=== PATIENT | female | born 1945 | race Caucasian/White ===

== ENCOUNTER 2019-04-20 00:28 | Outpatient (CLI) | payer OTHER, SELFPAY ==
--- NOTE | 2019-04-20 15:14 | DI.MAMMO_ITS ---
SYMPTOMS/DIAGNOSIS: SCREENING, Z12.31 BILATERAL SCREENING MAMMOGRAM: Mammograms were interpreted according to the usual protocol including computer analysis with CAD system, tomosynthesis and C view imaging. Comparison is made with exams from 2011 through 2016. The breasts are composed of scattered fibroglandular densities, breast density category B. No suspicious masses or suspicious microcalcifications are seen. There are scattered benign calcifications bilaterally. IMPRESSION: Category 2, negative mammogram with benign findings. Yearly screening mammography is recommended. [facility] ASSESSMENT OF FINDINGS: Negative with benign findings. Category 2. Patient will receive a letter notifying them of these results. BI-RADS category B. There are scattered areas of fibroglandular density.
== END 2019-04-20 00:48 ==
PROVIDERS: Visit Provider Internal Medicine
DX: Z12.31 Encounter for screening mammogram for malignant neoplasm of breast (principal)
CPT/HCPCS: 77063; 77067

== ENCOUNTER 2020-05-08 09:32 | Observation (INO) | payer OTHER, SELFPAY ==
[2020-05-08] VITALS (62 sets, daily range): BP systolic 134–190; BP diastolic 76–102; PULSE 82–129; RESP 9–25; TEMP 36–36.5; O2SAT 88–97
--- NOTE | 2020-05-08 | DI.MRI_ITS ---
CLINICAL HISTORY: suspected CVA. TECHNIQUE: Multiplanar multisequence MRA of the brain was performed. COMPARISON: CT angiography 05/08/2020. FINDINGS: Carotid Arteries: No aneurysm, occlusion or significant stenosis. Anterior Cerebral Arteries: Right: No aneurysm, occlusion or significant stenosis. Left: No aneurysm, occlusion or significant stenosis. Middle Cerebral Arteries: Right: No aneurysm, occlusion or significant stenosis. Left: No aneurysm, occlusion or significant stenosis. Posterior Cerebral Arteries: Right: No aneurysm, occlusion or significant stenosis. Left: No aneurysm, occlusion or significant stenosis. Vertebral Arteries: Right: No aneurysm, occlusion or significant stenosis. Left: No aneurysm, occlusion or significant stenosis. Basilar Artery: No aneurysm, occlusion or significant stenosis. IMPRESSION: Normal MRA examination of the [place]. DATA REPOSITORY:
--- NOTE | 2020-05-08 | DI.MRI_ITS ---
EXAM: MR BRAIN WO CLINICAL HISTORY: suspected CVA TECHNIQUE: Multiplanar multisequence MRI of the brain was performed. COMPARISON: CT CT BRAIN NECK CTA from 05/08/2020 FINDINGS: VENTRICLES AND EXTRA AXIAL SPACES: Normal in size and morphology for the patient's age. MIDLINE SHIFT: None. CEREBRAL PARENCHYMA: There is an area of restricted diffusion in the right thalamus consistent with a n acute infarct. No space-occupying lesion identified. Multiple foci of hyperintense signal on the T 2 and FLAIR images in the white matter consistent with small vessel ischemic disease. HEMORRHAGE: None. BRAINSTEM/CEREBELLUM: Normal. CALVARIUM: Normal. VISUALIZED PARANASAL SINUSES/MASTOIDS:Clear. OTHER FINDINGS: None. IMPRESSION: Findings consistent with an acute infarct in the right thalamus. DATA REPOSITORY:
--- NOTE | 2020-05-08 09:15 | DI.CT_ITS ---
EXAM: CT HEAD - STROKE PROTOCOL CLINICAL HISTORY: L sided numbness/weakness, r/o acute cva. TECHNIQUE: Imaging Protocol: Axial computed tomography images with coronal and sagittal reformatted images were created and reviewed COMPARISON: No exams were available for comparison FINDINGS: Ventricles and Extra axial spaces: Normal in size and morphology for the patient's age. Hemorrhage: None. Cerebral parenchyma: Findings of small vessel ischemic disease is present. Bilateral old lacunar inf arcts are present. No acute territorial infarct is present. Midline shift: None. Brainstem/Cerebellum: Normal. Calvarium: Normal. Visualized Paranasal sinuses/Mastoids: Clear. Soft Tissues: Unremarkable. IMPRESSION: No acute intracranial process. The findings were discussed with the emergency department on the date of the examination. RADIATION DOSE DELIVERED: 795.93mGy.cm Total DLP DATA REPOSITORY: All CT scans at this facility are submitted to the National Radiology Data Registry (NRDR) Dose Index Registry (DIR) with the [employer] (ACR). RADIATION OPTIMIZATION: All CT scans at this facility use at least one of these dose optimization te chniques: automated exposure control; mA and/or kV adjustment per patient size (includes targeted exa ms where dose is matched to clinical indication); or iterative reconstruction.
--- NOTE | 2020-05-08 09:29 | DI.RAD_ITS ---
EXAM: XR PORTABLE CHEST AP CLINICAL HISTORY: possible cva, r/o acute disease TECHNIQUE: 2D digital imaging was performed. COMPARISON: No exams were available for comparison FINDINGS: MEDIASTINUM: Normal. HEART: Normal. PULMONARY VASCULATURE: Normal. LUNGS: Clear. PLEURAL SPACE: No pleural effusion or pneumothorax. BONE:Normal. OTHER FINDINGS:Normal. IMPRESSION: No acute pulmonary findings. DATA REPOSITORY: RADIATION DOSE DELIVERED:
--- NOTE | 2020-05-08 09:30 | DI.CT_ITS ---
EXAM: CT BRAIN AND NECK CTA CLINICAL HISTORY: LT-SIDED NUMBNESS/WEAKNESS, R/O ACUTE CVA. TECHNIQUE: Imaging Protocol: Axial CT angiography was performed with multislice acquisition and mul tiplanar and/or 3D reconstructions. CONTRAST MATERIAL: Intravenous: Omnipaque 350 Contrast volume:structured data in ml COMPARISON: No exams were available for comparison FINDINGS: CTA Brain W: Internal Carotid Arteries: Petrous: Normal. Cavernous: Normal. Mild atherosclerosis. Cerebral: Normal. Middle Cerebral Arteries: Right: No aneurysm, occlusion or significant stenosis. Left: No aneurysm, occlusion or significant stenosis. Anterior Cerebral Arteries: Right: No aneurysm, occlusion or significant stenosis. Left: No aneurysm, occlusion or significant stenosis. Posterior cerebral Arteries: Right: No aneurysm, occlusion or significant stenosis. Left: No aneurysm, occlusion or significant stenosis. Vertebral Arteries: Right: No aneurysm, occlusion or significant stenosis. Left: No aneurysm, occlusion or significant stenosis. Basilar Artery: No aneurysm, occlusion or significant stenosis. CTA Neck W: Common Carotid: Right: No aneurysm, occlusion or significant stenosis. It has a retropharyngeal location. Left: No aneurysm, occlusion or significant stenosis. It has a retropharyngeal location. External Carotid: Right: No aneurysm, occlusion or significant stenosis. Left: No aneurysm, occlusion or significant stenosis. Internal Carotid: Right: No aneurysm, occlusion or significant stenosis. Left: No aneurysm, occlusion or significant stenosis. Vertebral Artery: Right: No aneurysm, occlusion or significant stenosis. Left: No aneurysm, occlusion or significant stenosis. Lung Apices: Normal. Bones: Mild degenerative changes of the cervical spine at C5-6 and C6-7. Soft Tissues: Normal. IMPRESSION: 1. No significant stenosis or occlusion of the cervical or intracranial arteries. 2. Findings were discussed with the Emergency Department on the date of the examination. RADIATION DOSE DELIVERED: 369.92mGy.cm Total DLP 369.92mGy.cm Total DLP 369.92mGy.cm Total DLP DATA REPOSITORY: All CT scans at this facility are submitted to the National Radiology Data Registry (NRDR) Dose Index Registry (DIR) with the [employer] (ACR). RADIATION OPTIMIZATION: All CT scans at this facility use at least one of these dose optimization te chniques: automated exposure control; mA and/or kV adjustment per patient size (includes targeted exa ms where dose is matched to clinical indication); or iterative reconstruction.
--- NOTE | 2020-05-08 09:31 | W.ED.GENAD ---
Discharge Plan Disposition Patient Disposition: [facility] INPATIENT Condition: Stable Discharge Details Chief Complaint: AMS/LOC Clinical Impression: TIA (transient ischemic attack) Admit Date/Time: 05/08/20 15:02 Admit Provider: Janey Borges Attending Provider: Janey Borges Primary Care Provider: Roney Ware ED Provider: Sarah Colón Discharge Data Discharge Date/Time-TO BE ENTERED AT DEPARTURE: 05/08/20 16:23 Medical Decision Making 1000 -- 74-year-old female with history of hypertension, hyperlipidemia, diabetes, multiple sclerosis who presents with left-sided tingling extending from the top of her head down to her left foot with left arm and left weakness that she noted upon waking at 8:30 AM this morning. Patient seen immediately upon arrival to ED in the hallway with difficulty with lifting both upper extremities with equal strength and with 4/5 strength left lower extremity compared to 5/5 strength right lower extremity. No facial droop. Oriented x3. Stat CT head and CTA head and neck negative. EKG notes a rate of 93, sinus, no acute ST elevation or depression. SC 132. QTc 445. QRS 80. 1030 --patient reassessed -symptoms are resolving. Case discussed with hospitalist who stated there was no neurology available here for the next week. Patient initially was hesitant to admission as she has cats at home and lives alone and does not have help. As [facility], they were also contacted but felt that patient was not appropriate for admission there as no neurology available. Patient is agreeable to admission here or the [facility]. Case discussed with [facility] neurology Dr. Mcmahon who reviewed imaging and states that case could be consistent with small vessel ischemic CVA and recommends admission for observation and MRI brain. Recommends dual antiplatelet therapy with 325 mg aspirin p.o. daily and a load of 600 mg Plavix today followed by 75 mg once daily. There are no [facility] beds available and neurology states that patient could be observed here overnight with plan for MRI brain. Case again discussed with hospitalist who accepts patient for admission. Patient has remained hemodynamically stable. Her blood pressure has been mildly hypertensive, 170s/70s. She still admits to intermittent tingling in her left side but states her left leg weakness remains improved. Medical Records Medical records reviewed: Yes I reviewed the patient's medical records. Imaging Data Radiologic Study: Radiologist's impression: CT HEAD - STROKE PROTOCOL CLINICAL HISTORY: L sided numbness/weakness, r/o acute cva. TECHNIQUE: Imaging Protocol: Axial computed tomography images with coronal and sagittal reformatted images were created and reviewed COMPARISON: No exams were available for comparison FINDINGS: Ventricles and Extra axial spaces: Normal in size and morphology for the patient's age. Hemorrhage: None. Cerebral parenchyma: Findings of small vessel ischemic disease is present. Bilateral old lacunar infarcts are present. No acute territorial infarct is present. Midline shift: None. Brainstem/Cerebellum: Normal. Calvarium: Normal. Visualized Paranasal sinuses/Mastoids: Clear. Soft Tissues: Unremarkable. IMPRESSION: No acute intracranial process. XR PORTABLE CHEST AP CLINICAL HISTORY: possible cva, r/o acute disease TECHNIQUE: 2D digital imaging was performed. COMPARISON: No exams were available for comparison FINDINGS: MEDIASTINUM: Normal. HEART: Normal. PULMONARY VASCULATURE: Normal. LUNGS: Clear. PLEURAL SPACE: No pleural effusion or pneumothorax. BONE:Normal. OTHER FINDINGS:Normal. IMPRESSION: No acute pulmonary findings. CT BRAIN AND NECK CTA CLINICAL HISTORY: LT-SIDED NUMBNESS/WEAKNESS, R/O ACUTE CVA. TECHNIQUE: Imaging Protocol: Axial CT angiography was performed with multislice acquisition and multiplanar and/or 3D reconstructions. CONTRAST MATERIAL: Intravenous: Omnipaque 350 Contrast volume:structured data in ml COMPARISON: No exams were available for comparison FINDINGS: CTA Brain W: Internal Carotid Arteries: Petrous: Normal. Cavernous: Normal. Mild atherosclerosis. Cerebral: Normal. Middle Cerebral Arteries: Right: No aneurysm, occlusion or significant stenosis. Left: No aneurysm, occlusion or significant stenosis. Anterior Cerebral Arteries: Right: No aneurysm, occlusion or significant stenosis. Left: No aneurysm, occlusion or significant stenosis. Posterior cerebral Arteries: Right: No aneurysm, occlusion or significant stenosis. Left: No aneurysm, occlusion or significant stenosis. Vertebral Arteries: Right: No aneurysm, occlusion or significant stenosis. Left: No aneurysm, occlusion or significant stenosis. Basilar Artery: No aneurysm, occlusion or significant stenosis. CTA Neck W: Common Carotid: Right: No aneurysm, occlusion or significant stenosis. It has a retropharyngeal location. Left: No aneurysm, occlusion or significant stenosis. It has a retropharyngeal location. External Carotid: Right: No aneurysm, occlusion or significant stenosis. Left: No aneurysm, occlusion or significant stenosis. Internal Carotid: Right: No aneurysm, occlusion or significant stenosis. Left: No aneurysm, occlusion or significant stenosis. Vertebral Artery: Right: No aneurysm, occlusion or significant stenosis. Left: No aneurysm, occlusion or significant stenosis. Lung Apices: Normal. Bones: Mild degenerative changes of the cervical spine at C5-6 and C6-7. Soft Tissues: Normal. IMPRESSION: 1. No significant stenosis or occlusion of the cervical or intracranial arteries. 2. Findings were discussed with the Emergency Department on the date of the examination. Lab Data Lab results reviewed: Yes I reviewed the patient's lab results. Labs: Laboratory Tests Range/Units 05/08/20 05/08/20 05/08/20 09:25 09:25 09:25 WBC (4.4-10.8) k/cumm 9.38 RBC (4.00-5.20) m/cumm 4.16 Hgb (12.0-15.5) g/dL 12.0 Hct (36.0-46.0) % 38.1 MCV (80-95) fL 91.6 MCH (27.0-33.0) pg 28.8 MCHC (32.0-36.0) g/dL 31.5 L RDW (11.7-14.6) % 14.5 Plt Count (130-400) x1000/uL 365 MPV (8.0-11.0) fL 10.6 Immature Gran % % 0.1 Neutrophils % 37.1 Lymphocytes % 54.2 Monocytes % 6.3 Eosinophils % 1.9 Basophils % 0.4 Absolute Neutrophils (1.2-6.7) k/cumm 3.48 Absolute Lymphocytes (1.2-3.4) k/cumm 5.08 H Absolute Monocytes (0.11-0.7) k/cumm 0.59 Absolute Eosinophils (0.0-0.7) k/cumm 0.18 Absolute Basophils (0.0-0.2) k/cumm 0.04 Differential Comment Agrees w/ instrument RBC Morphology Normal PT (9.3-11.0) sec 9.5 INR (0.9-1.1) 0.9 APTT (21.0-31.4) sec 23.7 Sodium (136-145) mmol/L 138 Potassium (3.5-5.1) mmol/L 4.5 Chloride (98-107) mmol/L 100 Carbon Dioxide (21.0-32.0) mmol/L 27.7 Anion Gap (3-11) mmol/L 10.3 BUN (7-18) mg/dL 16 Creatinine (0.55-1.02) mg/dL 1.39 H Estimated GFR/1.73 m2 (mL/min/1.73m2) 37.27 Glucose (74-106) mg/dL 102 Calcium (8.5-10.1) mg/dL 9.0 Magnesium (1.8-2.4) mg/dL 1.4 L Total Bilirubin (0.2-1.0) mg/dL 0.2 AST (15-37) U/L 22 ALT (14-59) U/L 27 Alkaline Phosphatase (46-116) U/L 106 Troponin I (<0.06) ng/mL < 0.05 Total Protein (6.4-8.2) g/dL 8.2 Albumin (3.4-5.0) g/dL 3.6 ECG Data Attestation: I personally reviewed and interpreted this ECG (s) as follows: Interpretation: Rate of 93, sinus, no acute ST elevation or depression. SC 132. QTc 445. QRS 80. HPI General Mode of arrival: EMS. Date/Time Provider Initiated Documentation: 05/08/20 09:36. Limitations to Documentation: no limitations. Information obtained by: patient. HPI Narrative: Patient is a 74-year-old female with a history of diabetes, hypertension, hyperlipidemia, multiple sclerosis who presents for left-sided numbness and weakness that she noted upon awakening this morning at 8:30 AM. Patient states she was sleeping in bed when she awoke and noticed left-sided in the needle sensation extending from the top of the left side of her head down to the bottom of her left foot. She states she also feels weakness in her left arm and left leg. She states the symptoms are starting to resolve since onset. She blurry vision in her left eye due to her history of multiple sclerosis. She denies any headache, dizziness, chest pain, shortness of breath, recent fall or injury, recent fever or illness, vomiting, diarrhea, urinary symptoms. Related Data Home Medications Medication Instructions Recorded Confirmed baclofen 10 mg PO BID 05/08/20 05/08/20 carboxymethylcellulose sodium 2 drp OPHTHALMIC (EYE) DAILY 05/08/20 05/08/20 citalopram 20 mg PO DAILY 05/08/20 05/08/20 hydrocortisone acetate 1 applic TOPICAL TID 05/08/20 05/08/20 meloxicam 7.5 mg PO BID 05/08/20 05/08/20 metformin 500 mg PO BID 05/08/20 05/08/20 omeprazole 20 mg PO BID 05/08/20 05/08/20 tramadol 50 mg PO BID 05/08/20 05/08/20 verapamil 240 mg PO DAILY 05/08/20 05/08/20 Allergies Allergy/AdvReac Type Severity Reaction Status Date / Time [id number] Reductase Allergy Unverified 05/08/20 10:10 Inhibitor Review of Systems All systems reviewed & are unremarkable except as noted in HPI and below Constitutional Constitutional: Reports as per HPI, Denies chills and Denies fever(s) Eyes Eyes: Denies blurry vision ENT Ears, Nose, Mouth, and Throat: Denies dizziness, Denies sore throat and Denies throat swelling Cardiovascular Cardiovascular: Denies chest pain and Denies dyspnea Respiratory Respiratory: Denies cough and Denies dyspnea Gastrointestinal Gastrointestinal: Denies abdominal pain, Denies diarrhea and Denies vomiting Genitourinary Genitourinary: Denies hematuria and Denies dysuria Musculoskeletal Musculoskeletal: Denies back pain and Reports numbness Integumentary/Breasts Skin/Breast: Denies lesions and Denies rash Neurologic Neurologic: Denies dizziness, Reports localized weakness and Reports numbness Allergic/Immunologic Allergic/Immunologic: Denies throat swelling [facility] Medical History (Updated 05/08/20 @ 20:51 by Sarah Colón DO) Arthritis (Acute) Diabetes (Chronic) Dry eye (Acute) GERD (gastroesophageal reflux disease) (Chronic) HTN (hypertension) (Chronic) Hx of hyperlipidemia (Acute) Multiple sclerosis (Chronic) Obesity (BMI 30.0-34.9) (Inactive) Surgical History (Updated 05/08/20 @ 19:24 by Janey Borges MD) History of bilateral tubal ligation (Acute) S/P tonsillectomy (Acute) Family History (Updated 05/08/20 @ 19:24 by Janey Borges MD) Mother Stroke Diabetes Social History (Updated 05/08/20 @ 19:25 by Janey Borges MD) Smoking/Tobacco Use Status: Former Tobacco Use Alcohol Intake: former Drug use: Current Sobriety Substance use type: former substance user and marijuana Exam Const General: cooperative, healthy appearing and no acute distress HENMT Head: normal to inspection Face and sinus: normal facial exam Eyes General: appearance normal, both eyes and all related structures EOM: EOM intact bilaterally Neck Neck: normal visual inspection and No submandibular swelling Lymphatic: no lymphadenopathy noted Chest Chest: normal inspection of the chest and no tenderness Resp Effort & Inspection: normal respiratory effort and able to speak in complete sentences Auscultation: clear to auscultation bilaterally Cardio Rate: regular rate Rhythm: regular rhythm GI Inspection: normal to inspection Palpation: soft, not firm, not rigid and nontender Auscultation: normal bowel sounds Back/Spine/Pelvis Thoracic/Lumbar Spine: thoracic and lumbar spine normal to inspection Pelvis: no pain with anterior-posterior compression Skin General skin exam: no rashes or lesions noted Neuro General: patient alert, patient awake and patient oriented x3 Cranial Nerves: CN's II-XI intact bilaterally Cognition: normal cognition Speech: speech normal Motor: muscle tone normal throughout, pronator drift pronator drift of left upper extremity and strength abnormal (Strength 4/5 LLE. Strength 5/5 RLE. Strength 5/5 b/l UE. ) Sensory Exam: no sensory deficits noted Extrem General: normal to inspection, full ROM, capillary refill normal, no calf tenderness bilaterally and no edema Psych Appearance: grossly normal Mental Status: mental status grossly normal Speech and Movement: speech and movement normal Affect: normal affect
[2020-05-08 09:46] LABS: Abs Immature Grans 0.01 k/cumm (0.0-0.09); Absolute Basophil Count 0.04 k/cumm (0.0-0.2); Absolute Eosinophil Count 0.18 k/cumm (0.0-0.7); Absolute Lymphocyte Count 5.08 k/cumm (1.2-3.4); Absolute Monocyte Count 0.59 k/cumm (0.11-0.7); Absolute Neutrophil Count 3.48 k/cumm (1.2-6.7); Basophils % 0.4; Eosinophils % 1.9; HCT 38.1 % (36.0-46.0); Immature Grans % 0.1 %; Lymphocytes % 54.2; Mean Corp. HGB Concentration 31.5 g/dL (32.0-36.0); Mean Corpuscular Hemoglobin 28.8 pg (27.0-33.0); Mean Corpuscular Volume 91.6 fL (80-95); Mean Platelet Volume 10.6 fL (8.0-11.0); Monocytes % 6.3; Neutrophils % 37.1; Platelet Count 365 x1000/uL (130-400); RBC 4.16 m/cumm (4.00-5.20); RBC Distribution Width 14.5 % (11.7-14.6); White Blood Cell Count 9.38 k/cumm (4.4-10.8)
[2020-05-08 10:01] LABS: INR 0.9 (0.9-1.1); PTT Activated 23.7 sec (21.0-31.4); Prothrombin Time 9.5 sec (9.3-11.0)
[2020-05-08 10:02] LABS: Diff Comment Agrees w/ Instrument; RBC Morphology Normal
[2020-05-08 10:06] LABS: ALT 27 U/L (14-59); AST 22 U/L (15-37); Albumin 3.6 g/dL (3.4-5.0); Alkaline Phosphatase 106 U/L (46-116); Anion Gap 10.3 mmol/L (3-11); BUN 16 mg/dL (7-18); Bilirubin, Total 0.2 mg/dL (0.2-1.0); CO2 27.7 mmol/L (21.0-32.0); CREATININE 1.39 mg/dL (0.55-1.02); Chloride 100 mmol/L (98-107); Estimated GFR 37.27 (mL/min/1.73m2); Glucose 102 mg/dL (74-106); Magnesium 1.4 mg/dL (1.8-2.4); Potassium 4.5 mmol/L (3.5-5.1); Sodium 138 mmol/L (136-145); Total Protein 8.2 g/dL (6.4-8.2)
[2020-05-08 10:08] LABS: Troponin I < 0.05 ng/mL (<0.06)
[2020-05-08] MEDS: Aspirin 325 MG TAB PO (10:23)
[2020-05-08] MEDS: MAGNESIUM SULFATE 1 GM/100 ML BAG IVPB (11:59)
[2020-05-08] MEDS: Normal Saline Flush 10 ML SYR IVP ×2 (12:02→19:11)
[2020-05-08] MEDS: Clopidogrel 75 MG TAB PO (12:24)
[2020-05-08] MEDS: Clopidogrel 75 MG TAB 225 MG PO (12:52)
[2020-05-08] MEDS: Clopidogrel 300 MG TAB PO (12:52)
--- NOTE | 2020-05-08 15:03 | PDOC.ERCMPRO ---
- If Service Date Differs Date of service: 05/08/20 Time of Service: 15:04 Care Management Progress Note At the request of ED provider, BRI meets with Michelle who prefers to be called Re. She reports she lives alone in an apartment on the second floor of a farmhouse and her landlord resides on the first floor of the home. Re is being admitted to the hospital overnight and she expresses concern over her two cats. Re states she has no friends or family in the area. She further states she is unwilling to ask her landlord to take care of the cats because she dislikes cats, and the landlord is reportedly upset with Pat because she is in the process of moving out of the apartment. BRI offers to make arrangements to have the cats picked up and cared for while she is in the hospital. Re declines the offer, saying her cats will be fine until tomorrow. If Re is not discharged home tomorrow, arrangements will be made for the care of the cats at that time.
[2020-05-08] MEDS: traMADol 50 MG TAB PO ×2 (15:49→20:06)
[2020-05-08] MEDS: Citalopram 20 MG TAB PO (15:49)
[2020-05-08] MEDS: Baclofen 10 MG TAB PO ×2 (15:49→20:06)
[2020-05-08] MEDS: Omeprazole 20 MG CAPCR PO ×2 (15:49→20:06)
[2020-05-08] MEDS: MELOXICAM 7.5 MG TAB PO (15:49)
[2020-05-08] MEDS: metFORMIN 500 MG TAB PO (15:49)
[2020-05-08 15:53] LABS: Troponin I < 0.05 ng/mL (<0.06)
--- NOTE | 2020-05-08 17:39 | DI.VRAD_ITS ---
PROCEDURE INFORMATION: Exam: MR Angiogram Head Without Contrast, Arteries Exam date and time: 05/08/2020 4:56 PM Age: 74 years old Clinical indication: Weakness and other: Left leg weakness TECHNIQUE: Imaging protocol: MR angiogram head without contrast. Exam focused on the arteries. 3D rendering: MIP and/or 3D reconstructed images were created by the technologist. COMPARISON: CT BRAIN NECK CTA 05/08/2020 9:45 AM FINDINGS: Anterior cerebral arteries: Intracranial segment is patent with no significant stenosis. No aneurysm. Right internal carotid artery: Intracranial segment is patent with no significant stenosis. No aneurysm. Right middle cerebral artery: No occlusion or significant stenosis. No aneurysm. Right posterior cerebral artery: No occlusion or significant stenosis. No aneurysm. Right vertebral artery: No occlusion or significant stenosis. No aneurysm. Left internal carotid artery: Intracranial segment is patent with no significant stenosis. No aneurysm. Left middle cerebral artery: No occlusion or significant stenosis. No aneurysm. Left posterior cerebral artery: No occlusion or significant stenosis. No aneurysm. Left vertebral artery: No occlusion or significant stenosis. No aneurysm. Basilar artery: No occlusion or significant stenosis. No aneurysm. IMPRESSION: No stenosis or aneurysm. Dictated and Authenticated by: Stoney Pichardo MD. Ordering:HERIBERTO Toth MD
--- NOTE | 2020-05-08 18:19 | DI.VRAD_ITS ---
Addendum created by Stoney Pichardo MD on 05/08/2020 6:34:45 PM EDT THIS REPORT CONTAINS FINDINGS THAT MAY BE CRITICAL TO PATIENT CARE. The findings were verbally communicated via telephone conference with WILL MARSHALL at 6:34 PM EDT on 05/08/2020. The findings were acknowledged and understood. Initial report created on 05/08/2020 6:19:26 PM EDT PROCEDURE INFORMATION: Exam: MR Head Without Contrast Exam date and time: 05/08/2020 5:15 PM Age: 74 years old Clinical indication: Walking, difficulty TECHNIQUE: Imaging protocol: MR of the head without contrast. 3D rendering: MIP and/or 3D reconstructed images were created by the technologist. COMPARISON: CT HEAD - STROKE PROTOCOL 05/08/2020 9:37 AM FINDINGS: Brain: Acute lacunar infarct involving the right thalamus. No acute intracranial hemorrhage. Age-related involutional changes and chronic microvascular ischemic disease. No mass effect or midline shift. No extra-axial collection. Basal cisterns are patent. Ventricles: Normal. No ventriculomegaly. Bones/joints: Unremarkable. Sinuses: Normal as visualized. No acute sinusitis. Mastoid air cells: Normal as visualized. No mastoid effusion. Orbits: Unremarkable. Soft tissues: Unremarkable. IMPRESSION: Acute lacunar infarct involving the right thalamus. No acute intracranial hemorrhage. No evidence of acute hemorrhage. Dictated and Authenticated by: Stoney Pichardo MD. Ordering:HERIBERTO Toth MD
[2020-05-08] MEDS: Enoxaparin 40 MG/0.4 ML SYR SC (19:10)
[2020-05-08] MEDS: MAGNESIUM SULFATE 2 GM/50 ML BAG IVPB (19:11)
--- NOTE | 2020-05-08 19:16 | HPE_ITS ---
Date of service: 05/08/20 Time of Service: 19:16 Assessment and Plan Assessment and plan (1) Acute thalamic infarction: Status: Acute Assessment and plan: As seen on MRI. [place] [facility] [place] with ED provider and recommended loading with asa/plavix and continue baby asa and plavix 75 mg PO daily x 1 month. Check lipids. Check A1C. Consult PT/OT. (2) Hypomagnesemia: Status: Acute Assessment and plan: Replete and recheck in am (3) Diabetes: Status: Chronic Assessment and plan: Check A1C. Hold metformin. Cover with SSI (4) Hx of hyperlipidemia: Status: Acute Assessment and plan: Continue statin, check FLP (5) HTN (hypertension): Status: Chronic Assessment and plan: Permissive hypertension over the next 24 hours. (6) DVT prophylaxis: Status: Acute Assessment and plan: SC lovenox (7) Discharge planning issues: Status: Acute Assessment and plan: DNR/DNI Plan to discharge patient home tomorrow History of Present Illness History of Present Illness Chief Complaint: I woke up feeling numb on my left side Narrative: Mr Serna is a 74 year old female with PMHx of MS, HTN, Hyperlipidemia, NIDDM2, obesity with BMI of 33, who presented to [facility] ED today complaining L-sided numbness and weakness starting at 8:30 am when she first woke up. She describes numbness in her face, LUE, trunk, groin, and LLE. She was dragging her L leg and her LUE was clumsy. The symptoms are almost completely resolved now. Denies difficulty swallowing. While EMS reported slight dysarthria, this was not noted in the ED, and the patient does not report it. Her workup has so far consisted of a negative CT/CTA head and neck, and an MRI that was positive for an acute lacunar infarct in her R thalamus without hemorrhage. She was loaded with plavix and recommended to be on CABRERA by [facility] neurology. We were asked to admit the patient for further monitoring. Review of Systems Narrative: 12 systems reviewed. Pertinent positives and negatives are as per HP I. Additionally, the patient denies chest pain, shortness of breath, cough, having contact with anyone with COVID-19. She always wears a mask whenever outside, which is rare. [facility] Medical History (Updated 05/08/20 @ 19:31 by Janey Borges MD) Arthritis (Acute) Diabetes (Chronic) Dry eye (Acute) GERD (gastroesophageal reflux disease) (Chronic) HTN (hypertension) (Chronic) Hx of hyperlipidemia (Acute) Multiple sclerosis (Chronic) Obesity (BMI 30.0-34.9) (Inactive) Surgical History (Updated 05/08/20 @ 19:24 by Janey Borges MD) History of bilateral tubal ligation (Acute) S/P tonsillectomy (Acute) Family History (Updated 05/08/20 @ 19:24 by Janey Borges MD) Mother Stroke Diabetes Social History (Updated 05/08/20 @ 19:25 by Janey Borges MD) Smoking/Tobacco Use Status: Former Tobacco Use Alcohol Intake: former Drug use: Current Sobriety Substance use type: former substance user and marijuana Meds Home Medications and Allergies Home Medications Medication Instructions Recorded Confirmed Type baclofen 10 mg PO BID 05/08/20 05/08/20 History carboxymethylcellulose sodium 2 drp OPHTHALMIC (EYE) DAILY 05/08/20 05/08/20 History citalopram 20 mg PO DAILY 05/08/20 05/08/20 History hydrocortisone acetate 1 applic TOPICAL TID 05/08/20 05/08/20 History meloxicam 7.5 mg PO BID 05/08/20 05/08/20 History metformin 500 mg PO BID 05/08/20 05/08/20 History omeprazole 20 mg PO BID 05/08/20 05/08/20 History tramadol 50 mg PO BID 05/08/20 05/08/20 History verapamil 240 mg PO DAILY 05/08/20 05/08/20 History Allergies Allergy/AdvReac Type Severity Reaction Status Date / Time Wmnszkq-Rru-Zhe Reductase Allergy Unverified 05/08/20 10:10 Inhibitor Exam Narrative Exam Narrative: General: Very pleasant obese female, in great spirits, appears comfortable in bed Neurological: A&Ox3, CN II-XII intact, 4/5 strength LUE/LLE; sensation intact on exam Psychiatric: appropriate speech pattern/content Skin: Visible skin intact HEENT: Atraumatic, normocephalic, EOMI, MMM, poor dentition, no submandibular or cervical lymphadenopathy, no goiter or JVD Cardiovascular: RRR, no m/r/g Lungs: CTAB Gastrointestinal: soft, nontender, nondistended Genitourinary: deferred Extremities: no e/c/c BLE's, 4/5 strenght LUE/LLE. Results Imaging Additional studies: EKG: NSR, HR 93, nonspecific ST-T changes, no acute ischemia CT head: No acute intracranial process. CXR: No acute pulmonary findings. CTA head/neck: 1. No significant stenosis or occlusion of the cervical or intracranial arteries. MRA brain: negative MRI brain: acute lacunar infarct R thalamus without hemorrhage. Labs Result diagrams: 05/08/20 09:25 05/08/20 09:25 Labs: Laboratory Results - last 24 hr 05/08/20 05/08/20 05/08/20 09:25 09:25 09:25 WBC 9.38 RBC 4.16 Hgb 12.0 Hct 38.1 MCV 91.6 MCH 28.8 MCHC 31.5 L RDW 14.5 Plt Count 365 MPV 10.6 Immature Gran % 0.1 Neutrophils % 37.1 Lymphocytes % 54.2 Monocytes % 6.3 Eosinophils % 1.9 Basophils % 0.4 Absolute Neutrophils 3.48 Absolute Lymphocytes 5.08 H Absolute Monocytes 0.59 Absolute Eosinophils 0.18 Absolute Basophils 0.04 Differential Comment Agrees w/ instrument RBC Morphology Normal PT 9.5 INR 0.9 APTT 23.7 Sodium 138 Potassium 4.5 Chloride 100 Carbon Dioxide 27.7 Anion Gap 10.3 BUN 16 Creatinine 1.39 H Estimated GFR/1.73 m2 37.27 Glucose 102 Calcium 9.0 Magnesium 1.4 L Total Bilirubin 0.2 AST 22 ALT 27 Alkaline Phosphatase 106 Troponin I < 0.05 Total Protein 8.2 Albumin 3.6 05/08/20 05/08/20 15:05 15:21 WBC RBC Hgb Hct MCV MCH MCHC RDW Plt Count MPV Immature Gran % Neutrophils % Lymphocytes % Monocytes % Eosinophils % Basophils % Absolute Neutrophils Absolute Lymphocytes Absolute Monocytes Absolute Eosinophils Absolute Basophils Differential Comment RBC Morphology PT INR APTT Sodium Potassium Chloride Carbon Dioxide Anion Gap BUN Creatinine Estimated GFR/1.73 m2 Glucose Calcium Magnesium Total Bilirubin AST ALT Alkaline Phosphatase Troponin I Cancelled < 0.05 Total Protein Albumin Last Vital Signs Temp 36.5 C 05/08/20 17:50 Pulse 104 H 05/08/20 17:50 Resp 19 05/08/20 17:50 BP 145/88 H 05/08/20 17:50 Pulse Ox 93 L 05/08/20 17:50 COVID-19 Screening In the past 14 days, have you traveled outside of [place] or [place]?: NO Had IN PERSON contact w/suspected or confirmed C-19 person: No
[2020-05-08] MEDS: Meloxicam 15 MG TAB 7.5 MG PO (20:06)
[2020-05-08] MEDS: Pravastatin 40 MG TAB 80 MG PO (20:06)
[2020-05-09 07:25] VITALS: BP 152/94; PULSE 91; RESP 18; TEMP 35.5; O2SAT 94
[2020-05-09 07:38] LABS: Abs Immature Grans 0.01 k/cumm (0.0-0.09); Absolute Basophil Count 0.03 k/cumm (0.0-0.2); Absolute Eosinophil Count 0.09 k/cumm (0.0-0.7); Absolute Lymphocyte Count 3.04 k/cumm (1.2-3.4); Absolute Monocyte Count 0.46 k/cumm (0.11-0.7); Absolute Neutrophil Count 2.61 k/cumm (1.2-6.7); Basophils % 0.5; Eosinophils % 1.4; HCT 34.4 % (36.0-46.0); HGB 10.9 g/dL (12.0-15.5); Immature Grans % 0.2 %; Lymphocytes % 48.7; Mean Corp. HGB Concentration 31.7 g/dL (32.0-36.0); Mean Corpuscular Hemoglobin 28.9 pg (27.0-33.0); Mean Corpuscular Volume 91.2 fL (80-95); Mean Platelet Volume 10.4 fL (8.0-11.0); Monocytes % 7.4; Neutrophils % 41.8; Platelet Count 348 x1000/uL (130-400); RBC 3.77 m/cumm (4.00-5.20); RBC Distribution Width 14.4 % (11.7-14.6); White Blood Cell Count 6.24 k/cumm (4.4-10.8)
[2020-05-09] MEDS: Clopidogrel 75 MG TAB PO (07:52)
[2020-05-09] MEDS: Baclofen 10 MG TAB PO (07:52)
[2020-05-09] MEDS: Hydrocortisone 1% CR 30 GM TUBE TP ×2 (07:52→14:46)
[2020-05-09] MEDS: Citalopram 20 MG TAB PO (07:52)
[2020-05-09] MEDS: Meloxicam 15 MG TAB 7.5 MG PO (07:53)
[2020-05-09] MEDS: Omeprazole 20 MG CAPCR PO (07:53)
[2020-05-09] MEDS: Refresh PLUS Eye Drops 0.4ml OP (07:53)
[2020-05-09] MEDS: traMADol 50 MG TAB PO (07:53)
[2020-05-09] MEDS: Aspirin E.C. 81 MG TABEC PO (07:53)
[2020-05-09 08:31] LABS: Anion Gap 11.3 mmol/L (3-11); BUN 19 mg/dL (7-18); CO2 27.7 mmol/L (21.0-32.0); CREATININE 1.61 mg/dL (0.55-1.02); Calcium 8.8 mg/dL (8.5-10.1); Calculated LDL 180 mg/dL (<100); Chloride 101 mmol/L (98-107); Cholesterol 266 mg/dL (<200); Estimated GFR 31.46 (mL/min/1.73m2); Glucose 102 mg/dL (74-106); HDL Cholesterol 46 mg/dL (40-60); Magnesium 2.1 mg/dL (1.8-2.4); Sodium 140 mmol/L (136-145); TSH (W/Ref FT4) 3.89 uIU/mL (0.36-3.74); Triglyceride 202 mg/dL (<150); Vitamin B12 285 pg/mL (193-986)
[2020-05-09 08:33] LABS: COVID-19 RT-PCR UVMMC Result Negative (Negative)
[2020-05-09 08:54] LABS: Hemoglobin A1C 6.5 % (3.8-5.6)
--- NOTE | 2020-05-09 08:56 | IN_ITS ---
Date of service: 05/09/20 Time of Service: 08:56 PT Notes Visit Reasons: CVA VS TIA Physical Therapy Inpatient Initial Evaluation Date: 05/09/2020 Referring Doctor: Janey Borges MD PT Orders: PT CONSULT: Limited ability Precautions: Fall. Standard. Activity as tolerated. Patient Profile/Admitting Diagnosis: Michelle is a 74-year-old lady who presented to the ED on 05/08/2020 with chief complaints of left-sided tingling from the top of her head to her left arm and legs upon waking up early in the morning yesterday. Patient is diagnosed with acute thalamic infarction, hypomagnesemia, and hyperlipidemia with referral to skilled physical therapy ser vices for mobility and safety assessment in anticipation of return to home alone when medically cleared. PMHX: Medical History (Updated 05/08/20 @ 19:31 by Janey Borges MD) Arthritis (Acute) Diabetes (Chronic) Dry eye (Acute) GERD (gastroesophageal reflux disease) (Chronic) HTN (hypertension) (Chronic) Hx of hyperlipidemia (Acute) Multiple sclerosis (Chronic) Obesity (BMI 30.0-34.9) (Inactive) Surgical History (Updated 05/08/20 @ 19:24 by Janey Borges MD) History of bilateral tubal ligation (Acute) S/P tonsillectomy (Acute) Social History/Home Situation: Michelle is a who lives alone in an apartment building with 22 steps to enter and rails on both sides. She is independent with all aspects of ADLs without the need for an assistive ambulatory device nor adaptive equipment. She has no car. She served in the [employer] for 4 years in the past. The [facility] takes care of all her transportation needs for all medical appointments. She uses taxi for all personal errands and grocery shopping. She reports no falls in the past 12 months. Equipment Owned/DME: Front wheeled walker, single-point cane Subjective: Patient reports that she is 50% better strength-wood on the left arm and leg. She denies any tingling sensation in her head nor in her left side as she did yesterday. Denies dizziness, lightheadedness, and chest pain throughout session. Objective: General Observation: Telemetry monitoring in place. No facial droop seen. Mental Status: Alert and oriented x4 Pain: None reported Vital Signs: After ambulation from room to 15 to the therapy gym blood pressure was 130/91 mmHg, HR 99 bpm, and oxygen on room air 94% ROM: Right Upper Extremity: Shoulder Flexion WFL. Shoulder abduction WFL. Elbow flexion WFL. Wrist flexion WFL. Opening and closing of hand WFL. Left Upper Extremity: Shoulder Flexion WFL. Shoulder abduction WFL. Elbow flexion WFL. Wrist flexion WFL. Opening and closing of hand WFL. Right Lower Extremity: Hip flexion WFL. Hip abduction WFL. Knee flexion WFL. Ankle dorsiflexion WFL. Ankle plantarflexion WFL. Left Lower Extremity: Hip flexion WFL. Hip abduction WFL. Knee flexion WFL. A nkle dorsiflexion WFL. Ankle plantarflexion WFL. Strength: Right Upper Extremity: Shoulder flexors 4/5. Shoulder abductors 4/5. Elbow flexors 5/5. Elbow extensors 5/5. Computer Art Instructor weak but functional. Left Upper Extremity: Shoulder flexors 4-/5. Shoulder abductors 4-/5. Elbow flexors 4-/5. Elbow extensors 4-/5. Computer Art Instructor weak but functional. Right Lower Extremity: Hip flexors 5/5. Hip abductors 5/5. Knee flexors 5/5. Knee extensors 5/5. Ankle dorsiflexors 5/5. Ankle plantarflexors 5/5. Left Lower Extremity:Hip flexors 4-/5. Hip abductors 4-/5. Knee flexors4/5. Knee extensors 4-/5. Ankle dorsiflexors 4/5. Ankle plantarflexors 4/5. Sensation: Intact as to pain and pressure on bilateral lower extremities. No tingling sensation reported throughout session Bed Mobility/Transfers: Supine to sit independent Sit to supine independent Sit to stand supervision Stand to sit supervision Bed to chair supervision Chair to bed supervision Gait: Patient tolerated level surface ambulation of 100 feet with no assistive device requiring standby assist but with patient reporting a certain amount of instability mediolaterally. Decreased arm swing bilaterally. Step length and height asymmetric. Increased stance time on the left. Decreased knee extension on the left during stance phase. Balance: Static Sitting: Normal Dynamic Sitting: Normal Static Standing: Normal Dynamic Standing: Fair Special Tests: Mobility Limitations Standardized Measure [employer] AM-PAC 6 clicks Basic Mobility Inpatient Short Form: Raw Score: 23 CMS Score: 11% deficit 4 stage balance test: Patient was able to maintain feet together and semi-tandem with the left foot leading for 10 seconds safely but was unable to do so with semi-tandem with a right foot leading, full tandem, and 1 legged stance due to weakness on the left side. 30-second chair rise: Tolerated 10 reps with arms across chest with no difficulty Informed Consent/Education: Patient instructed in purpose of PT consult and plan of care. Assessment: Michelle presents with impairment in strength and balance, functional mobility decline, and gait instability resulting from admitting diagnoses. Michelle is a 74-year-old lady who presented to the ED on 05/08/2020 with chief complaints of left-sided tingling from the top of her head to her left arm and legs upon waking up early in the morning yesterday. Patient is diagnosed with acute thalamic infarction, hypomagnesemia, and hyperlipidemia with referral to skilled physical therapy services for mobility and safety assessment in anticipation of return to home alone when medically cleared. Patient presents with clinical signs and symptoms consistent with current/admitting diagnoses that have resulted to mobility limitations, gait instability, generalized weakness, and impairment of motor control as demonstrated by the following impairment level findings: 1. Decreased strength to left LE major muscle groups 2. Impaired dynamic standing balance 3. Impaired activity tolerance 4. Symmetrical decrease functional sales representative consultant strength Impairments are contributing to the following functional limitations: 1. Inability to safely ambulate without assistive device and physical assistance 2. Increase completion time for mobility ADL performance 3. Increased fall risk 4. Inability to negotiate steps alone safely Patient is assessed as a 47705 moderate complexity based on the following: History: 74-year-old female with impairment level findings, functional limitations, and past medical history as indicated above Examination: Demonstrable impairment in strength, balance, and mobility level with underlying impairments and functional limitations as documented above Presentation:Evolving Decision Makin moderate complexity Goals: Goals X1 week 1. Supine-Sit independent 2. Sit-Supine independent 3. Sit-Stand independent 4. Stand-Sit independent 5. Bed-Chair independent 6. Chair-Bed independent 7. Independent gait on level surface with use of least restrictive device for at least 300 feet without report of pain nor dyspnea 8. Independent stair negotiation of 2 flights of stairs while holding onto bilateral rails without report of pain nor dyspnea 9. Independent with home exercise program 10. Normal static and dynamic standing balance/tolerance Plan of Care/Treatment Plan: 1-2x/day, 7 days/week x 1 week. Plan of care has been reviewed with the SCRAP HOIST OPERATOR providing the service under Physical Therapy direction. Initiate Physical Therapy intervention for strengthening, bed mobility, transfers, gait, stairs, balance training, use of assistive device. DISCHARGE RECOMMENDATIONS: Home when medically cleared. Patient will benefit from home health PT services in order to progress mobility level using least restrictive assistive ambulatory device, assess home safety, identify additional equipment needs, and establish a functional maintenance program that will increase ability of patient to remain at home. No equipment needs at this time TREATMENT CODE/TIME: 9716 2 x 32 minutes beginning at 8:56 AM. Thank you very much for this referral. Elizabeth Walker PT, DPT, CLT [facility] [place], [place]
--- NOTE | 2020-05-09 08:58 | OTIE_ITS ---
Occupational Therapy Notes Inpatient Occupational Therapy Evaluation Date: 05/09/20 Referring Doctor: Janey Borges MD OT Orders: Non Urgent Limited Ability Precautions: Fall, Standard, DNR/DNI PATIENT PROFILE/ADMITTING DIAGNOSIS: Pt is a 74 year old female who was admitted for observation after being admitted from the ED on 05/08/20 for TIA. Pt states that she had (L) sided numbness and tingling prior to her arrival. She was admitted with the following dx, acute thalamic infarction, hypomagnesemia, and hyperlipidemia. Past Medical History- Medical History (Updated 05/08/20 @ 19:31 by Janey Borges MD) Arthritis (Acute) Diabetes (Chronic) Dry eye (Acute) GERD (gastroesophageal reflux disease) (Chronic) HTN (hypertension) (Chronic) Hx of hyperlipidemia (Acute) Multiple sclerosis (Chronic) Obesity (BMI 30.0-34.9) (Inactive) Surgical History (Updated 05/08/20 @ 19:24 by Janey Borges MD) History of bilateral tubal ligation (Acute) S/P tonsillectomy (Acute) Social History/Home Situation: Pt reports that she is . She lives in a second floor apartment which she states she has 22 stairs to enter with (B) railings. She lives with her 2-cats sport and blue. She notes that she has a FWW and a cane at home but does not utilize them. She states that she is (I) at baseline in terms of her ADLs/IADL routines. She does not drive. She takes a [employer] taxi for groceries and attends her appts at the [facility] where they come to pick her up and bring her home. Equipment owned/DME: FWW, cane SUBJECTIVE: Pt was sitting in bed when OT arrived. She was agreeable to OT session and reports that she does not plan to be here long. She states that her numbness and tingling has resolved but she still feels dizzy at times and notes LOB. OBJECTIVE: General Observation: Pleasant, LOB initially in standing position, able to answer questions appropriately Mental Status: A&Ox3 Pain: no c/o pain. ROM: RUE AROM WFL L UE AROM WFL STRENGTH: RUE 4/5 throughout globally LUE 4/5 throughout globally SENSATION: intact (B) UE, decreased (L) LE FUNCTIONAL MOBILITY/ADLS: Transfers without (A) device Supine-sit (I) Sit-supine (I) Sit-Stand (I) Stand-sit (S) Bed-Chair (S) Chair-bed (S) BATHING standing at sink with mod vc for support of hands and CHIEF OPERATOR due to LOB Bathing UE (I) (B) UE, face and abdomen Bathing LE Denies DRESSING Dressing UE standing at sink (I) don and doffing hospital gown Dressing LE (I) don and doffing (B) socks GROOMING Standing at sink (I) with brushing hair, pt denies teeth TOILETING on toilet (I) EATING NT BALANCE: Static sitting Normal Dynamic Sitting Normal Static Standing Normal Dynamic Standing Fair- Good with LOB SPECIAL TESTS: Daily Activity Limitations Standardized Measure [facility] AM -PAC ?6 clicks? Daily Activity Inpatient Short Form: Raw score: 20 INFORMED CONSENT/EDUCATION: Pt instructed in purpose of OT Consult and plan of care. ASSESSMENT: Patient is a 74- year-old female referred to occupational therapy services with diagnosis of acute thalamic infarction, hypomagnesemia, and hyperlipidemia. Patient presents with clinical signs and symptoms consistent with dx. Pt tolerated OT session well. She is able to demonstrate her ADLs/IADLs with (I) and does have a slight LOB in the standing position. She is going to work with Physical Therapy for this at this time. OT feels that pt would benefit from returning home when medically cleared per MD. She does have a tub shower which she has difficulty getting in and out of. Pt would benefit from shower seat at this time to increase her safety during her bathing routine. Based on pts functional (I) and her performance in her ADL/IADL routines OT does not feel that pt would benefit from skilled OT services at this time. Plan is to formally discharge pt at this time. [facility] score 20 Patient is assessed as a Low 52698 complexity based on the following: History: See above Examination: see functional limitations as noted above Presentation: evolving Decision Making: low GOALS N/A seen for OT consult only. PLAN OF CARE/TREATMENT PLAN: Seen for OT consult only. DISCHARGE RECOMMENDATIONS Home when medically cleared per MD. Pt would benefit from shower seat at this time to increase her safety during her bathing routine. TREATMENT TIME/MINUTES/CODES 77574, [id number], 20 minutes (07:25) Kirsty Pedro, OTR/L [facility] [place]
[2020-05-09 09:15] VITALS: BP 130/91; PULSE 99; RESP 18; TEMP 37.1; O2SAT 95
--- NOTE | 2020-05-09 10:41 | INITIAL_ITS ---
- If Service Date Differs Date of service: 05/09/20 Time of Service: 10:41 Care Management Initial Assess REASON FOR HOSPITALIZATION:: CVA vs TIA PAST MEDICAL HISTORY/PAST SURGICAL HISTORY:: Multiple scleroisis, hyperlipidemia, DM, arthritis, GERD, HTN. 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 [facility] not [facility], [facility] she lives with two cats in an apartment. She originally is from [place] and is returning there at the end of the month. CURRENT FUNCTIONAL STATUS:: Michelle is engaged with [facility] during assessment, she states she has friends in [place] and is moving there her apartment is ready on May 28. She does not want services set up locally. She will need a weeks worth of new medicaiton from here as she does not have the resources to [facility] She only has Medicare part A and no outside prescription coverage. CM will fax the discharge summary to the [facility] for follow up and presciption for her new medications. ADVANCE DIRECTIVES:: None on file declines to complete, at this time she states she is a DNR/DNI Has patient been provided with info about the portal/API?: Yes Did the patient sign up for the portal?: No (No access to compute) CODE STATUS:: DNR/DNI INSURANCE COVERAGE / FINANCIAL ISSUES:: Medicare CURRENT HOME/COMMUNITY SERVICES/EQUIPMENT:: [facility] services [facility] PRIMARY CARE PHYSICIAN:: SANDY Gilmore POTENTIAL DISCHARGE NEEDS:: Follow up primary care, [facility] has contacted the [facility] and will fax the notes and discharge summary to at the [facility]. They will follow up the ZIO patch and send in the new prescriptions to the patient. PATIENT/FAMILY EDUCATION NEEDS:: Discharge education, limitations and follow up plan of care including ask me three and self management. ANTICIPATED BARRIERS TO DISCHARGE:: No identified barriers TRANSPORTATION:: Via RCT coordinated by [facility] PLAN:: Michelle will be discharged home when medically ready she states it will be today. [facility] has contacted the [facility] and reviewed the plan she will need 7 days worth of new medications and time of discharge.
[2020-05-09 11:10] VITALS: BP 142/84; PULSE 84; RESP 19; TEMP 35.9; O2SAT 94
[2020-05-09] MEDS: Insulin Aspart 300 UNITS/3 ML PEN SC (11:55)
[2020-05-09] MEDS: Cyanocobalamin 1000 MCG/ML VIAL IM/SC (13:29)
--- NOTE | 2020-05-09 13:29 | DM INPTCON_ITS ---
Date of service: 05/09/20 Time of Service: 13:29 Diabetes Inpatient Consult DESCRIPTION/ASSESSMENT: 74 year old female admitted with TIA. PMH: DM2, HTN, Hyperlipidemia. Received Diabetes education consult. Met with Michelle today. She delcines diabetes consult. Recent A1C: 6.5% indicating well controlled DM. Home meds include metformin 500 mg BID. FS inhouse wnl. Elevated lipids noted, on statin. BMI indicates obesity. Following diabetic diet with excellent intake. Meeting nutrient needs. INTERVENTION: attempted to provide diabetes education but pt declined Provided imformation on diet management with hyperlipidemia, contact info to outpatient nutritional services provided. PLAN: Pt will follow up with display card writer zhanna. Time Spent in Nutritional Counseling and Treatment: 5 min
--- NOTE | 2020-05-09 13:36 | W.PM.DS.N ---
Date of service: 05/09/20 Time of Service: 13:36 DS: Diagnosis Discharge Diagnosis (1) Acute thalamic infarction: Status: Acute (2) Hypomagnesemia: Status: Acute (3) Diabetes: Status: Chronic (4) Hx of hyperlipidemia: Status: Acute (5) HTN (hypertension): Status: Chronic (6) Vitamin B12 deficiency: Status: Acute (7) CKD (chronic kidney disease): Status: Acute (8) COVID-19 ruled out: Status: Acute Discharge Plan Disposition Patient Disposition: HOME Condition: Stable Discharge Details Chief Complaint: AMS/LOC Clinical Impression: TIA (transient ischemic attack) Reason For Visit: CVA VS TIA Admit Date/Time: 05/08/20 15:02 Admit Provider: Janey Borges Attending Provider: Janey Borges Primary Care Provider: Roney Ware ED Provider: Sarah Colón Hospital Course Hospital Course: Ms Serna is a 74 year old female with PMHx of NIDDM2, HTN, hiperlipidemia, MS, who was observed on [facility] hospitalist service after presenting with L-sided numbness and weakness, found to be due to acute lacunar R thalamic CVA. She had a negative CT/CTA of the head and neck. MRA was also negative. MRI revealed the above infarct. There were no arrhythmic events on telemetry. Echo could not be obtained due to lack of availability of echocardiography at our facility today[place] [facility] and recommended initiating the patient on CABRERA x 1 month after being loaded with plavix, then switch over to baby aspirin. Permissive hypertension was pursued for the first 24 hours, and on discharge her BP is 142/84. We will defer antihypertensive adjustments to her PCP - at this time, we feel her verapamil is sufficient. The patient is hyperlipidemic, but does not tolerate statins (reaction being confusion). We recommend fish oil on discharge. She is B12 deficient - repletion was initiated. Her Cr of 1.6 prohibits the use of metformin. She is being transitioned to januvia on discharge. Depending on her Cr as outpatient, she may be able to resume metformin. She will need neurology follow up as well as outpatient echo and extended cardiac monitoring. She was evaluated by PT and OT and discharge home with home health PT is recommended. However, the patient is right about to move to [place], [place] and re-establish care with [facility] there. We defer to her PCP arrangement of extended cardiac monitoring, echo, home health vs outpatient PT. She will need a neurology referral. She is medically ready for discharge home today. We are giving her 1 week supply of new medications. Home Meds and New Rx's Prescriptions: New clopidogrel [Plavix] 75 mg Tablet 75 mg PO DAILY Qty: 30 RF: 0 aspirin 81 mg Tablet,Delayed Release (Dr/Ec) 81 mg PO DAILY Qty: 30 RF: 0 cyanocobalamin (vitamin B-12) [Vitamin B-12] 500 mcg Tablet 1,000 mcg PO DAILY Qty: 60 RF: 0 Januvia 50 mg tablet 50 mg PO DAILY Qty: 30 RF: 0 omega-3 fatty acids [Fish Oil Concentrate] 1,000 mg capsule 2,000 mg PO BID Qty: 120 RF: 0 magnesium oxide 400 mg (241.3 mg magnesium) tablet 400 mg PO DAILY Qty: 30 RF: 0 Continued citalopram 40 mg Tablet 20 mg PO DAILY RF: 0 hydrocortisone acetate 1 % Cream 1 applic TOPICAL TID RF: 0 meloxicam 15 mg Tablet 7.5 mg PO BID RF: 0 tramadol 50 mg Tablet 50 mg PO BID RF: 0 carboxymethylcellulose sodium 0.5 % Drops 2 drp OPHTHALMIC (EYE) DAILY RF: 0 baclofen 10 mg Tablet 10 mg PO BID RF: 0 verapamil 240 mg Tablet Extended Release 240 mg PO DAILY RF: 0 omeprazole 20 mg Tablet,Delayed Release (Dr/Ec) 20 mg PO BID RF: 0 Discontinued metformin 500 mg Tablet 500 mg PO BID RF: 0 Discharge Instructions Instructions: Aspirin (By mouth), Clopidogrel (By mouth), Sitagliptin (By mouth), Piozy-7-Vqniasrxuc Acids (By mouth), Ischemic Stroke (DC), Hyperlipidemia (DC) Additional Instructions: Return to the hospital with any new neurological symptoms, fever, bleeding, chest pain, shortness of breath. Drink plenty of water for the next week. Follow up with PCP as soon as possible. Stand Alone Forms: Nursing Discharge Form Referrals: Roney Ware [Primary Care Provider] - (please call to follow up) Activity:: Activity as Tolerated Equipment/Supplies:: No Equipment Needed Diet:: diabetic low sodium Discharge Orders Discharge Orders: Discharge Order (Routine); Ordered 05/09/20 Ordered By: Janey Borges DS: Summary Status at Discharge Functional status at discharge: independent ambulation Overall status at discharge: patient is progressing back to baseline Mental Status: mental status grossly normal Speech and Movement: speech and movement normal Mood: congruent mood Affect: normal affect Exam Narrative Exam Narrative: General: Very pleasant obese female, in great spirits Neurological: A&Ox3, CN II-XII intact, 4+/5 strength LUE/LLE, 5/5 RUE/RLE HEENT: Atraumatic, normocephalic, EOMI, MMM, Cardiovascular: RRR, no m/r/g, mildly tachycardic Lungs: CTAB Gastrointestinal: soft, nontender, nondistended Extremities: no e/c/c BLE's. Psych Mental Status: mental status grossly normal Speech and Movement: speech and movement normal Mood: congruent mood Affect: normal affect DS: Data Vitals/I&O Vitals and I&O: Vital Signs Temperature 35.9 C L 05/09/20 11:10 Temperature Source Tympanic 05/09/20 11:10 Pulse 84 05/09/20 11:10 Pulse Rhythm Regular 05/09/20 07:55 Pulse 89 05/08/20 15:20 Respiratory Rate 19 05/09/20 11:10 Respiratory Effort 05/09/20 07:55 Respiratory Depth Normal 05/09/20 07:55 Respiratory Pattern Normal 05/09/20 07:55 Blood Pressure 142/84 H 05/09/20 11:10 Blood Pressure Mean 115 05/08/20 15:17 Blood Pressure Position Supine 05/08/20 09:57 Pulse Oximetry 94 L 05/09/20 11:10 Oxygen Delivery Method Room Air 05/09/20 11:10 Oxygen Flow Rate 0 05/09/20 11:10 Pain Level 0 05/09/20 11:10 Intake & Output 05/08/20 05/09/20 05/09/20 23:59 11:59 23:59 Intake Total 770 / 770 Output Total 825 / 825 300 / 400 100 / 400 Balance -55 / -55 -300 / -400 -100 / -400 Weight 81.1 kg 79.9 kg Intake: IV 120 / 120 Oral 650 / 650 Output: Urine 825 / 825 300 / 400 100 / 400 Other: Urine Color Yellow Straw Yellow Urine Appearance Clear Clear Clear Sediment Urine Odor Normal Normal Normal Voiding Methods Toilet Toilet Toilet Data Completed and Pending Completed studies during hospitalization [Text1]: CXR: No acute pulmonary findings. CT head: No acute intracranial process. CTA head/neck: 1. No significant stenosis or occlusion of the cervical or intracranial arteries. MRI brain: Findings consistent with an acute infarct in the right thalamus. MRA brain: Normal MRA examination of the [place]. Labs on day of discharge: Labs from last 24 hours 05/09/20 05/09/20 05/09/20 07:05 07:05 07:05 WBC 6.24 D RBC 3.77 L Hgb 10.9 L Hct 34.4 L MCV 91.2 MCH 28.9 MCHC 31.7 L RDW 14.4 Plt Count 348 MPV 10.4 Immature Gran % 0.2 Neutrophils % 41.8 Lymphocytes % 48.7 Monocytes % 7.4 Eosinophils % 1.4 Basophils % 0.5 Absolute Neutrophils 2.61 Absolute Lymphocytes 3.04 Absolute Monocytes 0.46 Absolute Eosinophils 0.09 Absolute Basophils 0.03 Sodium 140 Potassium 4.0 Chloride 101 Carbon Dioxide 27.7 Anion Gap 11.3 H BUN 19 H Creatinine 1.61 H Estimated GFR/1.73 m2 31.46 Glucose 102 Hemoglobin A1c 6.5 H Calcium 8.8 Magnesium 2.1 Troponin I Triglycerides 202 H Total Cholesterol 266 H LDL Cholesterol, Calc 180 H HDL Cholesterol 46 Vitamin B12 285 TSH 3.89 H Free T4 1.00 COVID-19 PCR Nasopharyn COVID-19 PCR Ref Test Perform Site 05/08/20 05/08/20 05/08/20 15:40 15:21 15:05 WBC RBC Hgb Hct MCV MCH MCHC RDW Plt Count MPV Immature Gran % Neutrophils % Lymphocytes % Monocytes % Eosinophils % Basophils % Absolute Neutrophils Absolute Lymphocytes Absolute Monocytes Absolute Eosinophils Absolute Basophils Sodium Potassium Chloride Carbon Dioxide Anion Gap BUN Creatinine Estimated GFR/1.73 m2 Glucose Hemoglobin A1c Calcium Magnesium Troponin I < 0.05 Cancelled Triglycerides Total Cholesterol LDL Cholesterol, Calc HDL Cholesterol Vitamin B12 TSH Free T4 COVID-19 PCR Negative Nasopharyn COVID-19 PCR Not Applicable Ref Test Perform Site [facility] Medical History (Updated 05/09/20 @ 13:41 by Janey Borges MD) Arthritis (Acute) CKD (chronic kidney disease) (Acute) Diabetes (Chronic) Dry eye (Acute) GERD (gastroesophageal reflux disease) (Chronic) HTN (hypertension) (Chronic) Hx of hyperlipidemia (Acute) Multiple sclerosis (Chronic) Obesity (BMI 30.0-34.9) (Inactive) Vitamin B12 deficiency (Acute) Surgical History (Updated 05/08/20 @ 19:24 by Janey Borges MD) History of bilateral tubal ligation (Acute) S/P tonsillectomy (Acute) Family History (Updated 05/08/20 @ 19:24 by Janey Borges MD) Mother Stroke Diabetes Social History (Updated 05/08/20 @ 19:25 by Janey Borges MD) Smoking/Tobacco Use Status: Former Tobacco Use Alcohol Intake: former Drug use: Current Sobriety Substance use type: former substance user and marijuana
[2020-05-09 15:36] VITALS: BP 154/90; PULSE 98; RESP 20; TEMP 36.4; O2SAT 93
--- NOTE | 2020-05-12 08:24 | OT.INDS ---
Date of service: 05/12/20 Time of Service: 08:24 Occupational Therapy Notes Occupational Therapy Inpatient Discharge Summary Date: 05/12/20 Dates of Service: 05/09/20 Referring Doctor: Janey Borges MD OT Orders: Non Urgent Limited Ability Precautions: Fall, Standard, DNR/DNI *This document serves as a summary of care no skilled OT services were provided for this documentation PATIENT PROFILE/ADMITTING DIAGNOSIS: Pt is a 74 year old female who was admitted for observation after being admitted from the ED on 05/08/20 for TIA. Pt states that she had (L) sided numbness and tingling prior to her arrival. She was admitted with the following dx, acute thalamic infarction, hypomagnesemia, and hyperlipidemia. Past Medical History- Medical History (Updated 05/08/20 @ 19:31 by Janey Borges MD) Arthritis (Acute) Diabetes (Chronic) Dry eye (Acute) GERD (gastroesophageal reflux disease) (Chronic) HTN (hypertension) (Chronic) Hx of hyperlipidemia (Acute) Multiple sclerosis (Chronic) Obesity (BMI 30.0-34.9) (Inactive) Surgical History (Updated 05/08/20 @ 19:24 by Janey Borges MD) History of bilateral tubal ligation (Acute) S/P tonsillectomy (Acute) Social History/Home Situation: Pt reports that she is . She lives in a second floor apartment which she states she has 22 stairs to enter with (B) railings. She lives with her 2-cats sport and blue. She notes that she has a FWW and a cane at home but does not utilize them. She states that she is (I) at baseline in terms of her ADLs/IADL routines. She does not drive. She takes a town taxi for groceries and attends her appts at the [facility] where they come to pick her up and bring her home. Equipment owned/DME: FWW, cane SUBJECTIVE: NT OBJECTIVE: General Observation: Pleasant, LOB initially in standing position, able to answer questions appropriately Mental Status: A&Ox3 Pain: no c/o pain. 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 Daily Activity Inpatient Short Form: Raw score: 20 INFORMED CONSENT/EDUCATION: Pt instructed in purpose of OT Consult and plan of care. ASSESSMENT: Patient is a 74- year-old female referred to occupational therapy services with diagnosis of acute thalamic infarction, hypomagnesemia, and hyperlipidemia. Patient presents with clinical signs and symptoms consistent with dx. Pt tolerated OT session well. She is able to demonstrate her ADLs/IADLs with (I) and does have a slight LOB in the standing position. She is going to work with Physical Therapy for this at this time. OT feels that pt would benefit from returning home when medically cleared per MD. She does have a tub shower which she has difficulty getting in and out of. Pt would benefit from shower seat at this time to increase her safety during her bathing routine. Based on pts functional (I) and her performance in her ADL/IADL routines OT does not feel that pt would benefit from skilled OT services at this time. Plan is to formally discharge pt at this time. [facility] score 20 Patient is assessed as a Low 73271 complexity based on the following: History: See above Examination: see functional limitations as noted above Presentation: evolving Decision Making: low GOALS N/A seen for OT consult only. PLAN OF CARE/TREATMENT PLAN: Seen for OT consult only. DISCHARGE RECOMMENDATIONS Home when medically cleared per MD. Pt would benefit from shower seat at this time to increase her safety during her bathing routine. TREATMENT TIME/MINUTES/CODES [id number], [id number], 20 minutes (07:25) Kirsty Pedro, OTR/L [facility] [place]
--- NOTE | 2020-05-13 11:25 | INDS_ITS ---
Date of service: 05/13/20 PT Notes Visit Reasons: CVA VS TIA Inpatient Physical Therapy Discharge Summary Dates: 05/13/2020 Dates of Service: 05/09/2020 only This is a clinical summary of care provided on the duration of dates listed above. No charge was made in the completion of this documentation. Referring Doctor: Janey Borges MD PT Orders: PT CONSULT: Limited ability Precautions: Fall. Standard. Activity as tolerated. Patient Profile/Admitting Diagnosis: Michelle is a 74-year-old lady who presented to the ED on 05/08/2020 with chief complaints of left-sided tingling from the top of her head to her left arm and legs upon waking up early in the morning yesterday. Patient is diagnosed with acute thalamic infarction, hypomagnesemia, and hyperlipidemia with referral to skilled physical therapy services for mobility and safety assessment in anticipation of return to home alone when medically cleared. PMHX: Medical History (Updated 05/08/20 @ 19:31 by Janey Borges MD) Arthritis (Acute) Diabetes (Chronic) Dry eye (Acute) GERD (gastroesophageal reflux disease) (Chronic) HTN (hypertension) (Chronic) Hx of hyperlipidemia (Acute) Multiple sclerosis (Chronic) Obesity (BMI 30.0-34.9) (Inactive) Surgical History (Updated 05/08/20 @ 19:24 by Janey Borges MD) History of bilateral tubal ligation (Acute) S/P tonsillectomy (Acute) Social History/Home Situation: Michelle is a who lives alone in an apartment building with 22 steps to enter and rails on both sides. She is independent with all aspects of ADLs without the need for an assistive ambulatory device nor adaptive equipment. She has no car. She served in the [employer] for 4 years in the past. The [place] takes care of all her transportation needs for all medical appointments. She uses taxi for all personal errands and grocery shopping. She reports no falls in the past 12 months. Equipment Owned/DME: Front wheeled walker, single-point cane Subjective: NT Objective: General Observation: NT Mental Status: NT Pain: NT ROM: Right Upper Extremity: Shoulder Flexion WFL. Shoulder abduction WFL. Elbow flexion WFL. Wrist flexion WFL. Opening and closing of hand WFL. Left Upper Extremity: Shoulder Flexion WFL. Shoulder abduction WFL. Elbow flexion WFL. Wrist flexion WFL. Opening and closing of hand WFL. Right Lower Extremity: Hip flexion WFL. Hip abduction WFL. Knee flexion WFL. Ankle dorsiflexion WFL. Ankle plantarflexion WFL. Left Lower Extremity: Hip flexion WFL. Hip abduction WFL. Knee flexion WFL. Ankle dorsiflexion WFL. Ankle plantarflexion WFL. Strength: Right Upper Extremity: Shoulder flexors 4/5. Shoulder abductors 4/5. Elbow flexors 5/5. Elbow extensors 5/5. Behavior Specialist weak but functional. Left Upper Extremity: Shoulder flexors 4-/5. Shoulder abductors 4-/5. Elbow flexors 4-/5. Elbow extensors 4-/5. Behavior Specialist weak but functional. Right Lower Extremity: Hip flexors 5/5. Hip abductors 5/5. Knee flexors 5/5. Knee extensors 5/5. Ankle dorsiflexors 5/5. Ankle plantarflexors 5/5. Left Lower Extremity:Hip flexors 4-/5. Hip abductors 4-/5. Knee flexors4/5. Knee extensors 4-/5. Ankle dorsiflexors 4/5. Ankle plantarflexors 4/5. Sensation: Intact as to pain and pressure on bilateral lower extremities. No tingling sensation reported throughout session Bed Mobility/Transfers: Supine to sit independent Sit to supine independent Sit to stand supervision Stand to sit supervision Bed to chair supervision Chair to bed supervision Gait: Patient tolerated level surface ambulation of 100 feet with no assistive device requiring standby assist but with patient reporting a certain amount of instability mediolaterally. Decreased arm swing bilaterally. Step length and height asymmetric. Increased stance time on the left. Decreased knee extension on the left during stance phase. Balance: Static Sitting: Normal Dynamic Sitting: Normal Static Standing: Normal Dynamic Standing: Fair 4 stage balance test: Patient was able to maintain feet together and semi-tandem with the left foot leading for 10 seconds safely but was unable to do so with semi-tandem with a right foot leading, full tandem, and 1 legged stance due to weakness on the left side. 30-second chair rise: Tolerated 10 reps with arms across chest with no difficulty Informed Consent/Education: Patient instructed in purpose of PT consult and plan of care. Assessment: Michelle continues to present with impairment in strength and balance, functional mobility decline, and gait instability resulting from admitting diagnoses. Michelle is a 74-year-old lady who presented to the ED on 05/08/2020 with chief complaints of left-sided tingling from the top of her head to her left arm and legs upon waking up early in the morning yesterday. Patient is diagnosed with acute thalamic infarction, hypomagnesemia, and hyperlipidemia with referral to skilled physical therapy services for mobility and safety assessment in anticipation of return to home alone when medically cleared. Goals: Goals X1 week 1. Supine-Sit independent MET 2. Sit-Supine independent MET 3. Sit-Stand independent NOT MET 4. Stand-Sit independent NOT MET 5. Bed-Chair independent NOT MET 6. Chair-Bed independent NOT MET 7. Independent gait on level surface with use of least restrictive device for at least 300 feet without report of pain nor dyspnea NOT MET 8. Independent stair negotiation of 2 flights of stairs while holding onto bilateral rails without report of pain nor dyspnea NOT MET 9. Independent with home exercise program NOT MET 10. Normal static and dynamic standing balance/tolerance NOT MET DISCHARGE RECOMMENDATIONS: Home when medically cleared. Patient will benefit from home health PT services in order to progress mobility level using least restrictive assistive ambulatory device, assess home safety, identify additional equipment needs, and establish a functional maintenance program that will increase ability of patient to remain at home. No equipment needs at this time TREATMENT CODE/TIME: NC. Thank you very much for this referral. Elizabeth Walker PT, DPT, CLT [facility] [place], [place]
== END 2020-05-09 16:02 | disposition home or self-care (01) ==
LOC: ER 15:40 → MS 16:27
PROVIDERS: Admitting Provider Internal Medicine; Emergency Provider Physician Assistant; Visit Provider Family Medicine
DX: I63.81 Other cerebral infarction due to occlusion or stenosis of small artery (principal); G81.94 Hemiplegia, unspecified affecting left nondominant side; R20.0 Anesthesia of skin; E83.42 Hypomagnesemia; N18.9 Chronic kidney disease, unspecified; E11.22 Type 2 diabetes mellitus with diabetic chronic kidney disease; E78.5 Hyperlipidemia, unspecified; I10 Essential (primary) hypertension; G35 Multiple sclerosis; E53.8 Deficiency of other specified B group vitamins; Z03.818 Encounter for observation for suspected exposure to other biological agents ruled out; Z66 Do not resuscitate; K21.9 Gastro-esophageal reflux disease without esophagitis
CPT/HCPCS: 36415; 36416; 70496; 70498; 70544; 80048; 80053; 80061; 82962; 93005; 96365; 97162; 97165; 97535; 99217; 99220; 99285; J1650; U0003; 70450; 70551; 71045; 82607; 83036; 83735; 84439; 84443; 84484; 85025; 85610; 85730; 93010; G0378; J3420; J3475